=== PATIENT | female | born 1985 | race American Indian/Alaskan Native ===

== ENCOUNTER 2017-12-29 05:49 | Emergency (ER) | payer MEDICAID ==
[~2017-12-29] VITALS: Ht 162.6 cm; Wt 97.0 kg
[2017-12-29] MEDS ORDERED: IBUPROFEN 800MG TABLET PO ONE (06:45)
[2017-12-29 08:00] LABS: *AMPHETAMINES SCREEN URINE NEGATIVE (NEGATIVE); *BARBITURATES SCREEN URINE NEGATIVE (NEGATIVE); *BENZODIAZEPINES SCREEN URINE NEGATIVE (NEGATIVE); *COCAINE SCREEN URINE NEGATIVE (NEGATIVE); CANNABINOID URINE SCREEN NEGATIVE (NEGATIVE); METHADONE URINE SCREEN NEGATIVE (NEGATIVE); OPIATES URINE SCREEN NEGATIVE (NEGATIVE); PHENCYCLIDINE URINE SCREEN NEGATIVE (NEGATIVE)
[2017-12-29 14:50] VITALS: BP 128/78
== END 2017-12-29 15:21 | disposition home or self-care (01) ==
LOC: ER 05:49
DX: R07.89 Other chest pain (principal); F41.9 Anxiety disorder, unspecified
CPT/HCPCS: 36415; 71045; 80305; 81025; 93005; 99285; G0482

== ENCOUNTER 2018-02-04 11:47 | Emergency (ER) | payer MEDICAID ==
[~2018-02-04] VITALS: Ht 162.6 cm; Wt 82.0 kg
[2018-02-04] MEDS ORDERED: KETOROLAC 15MG/ML VIAL IM ONE (12:00)
[2018-02-04] MEDS ORDERED: ACETAMINOPHEN 325MG TABLET PO ONE (12:00)
[2018-02-04 12:50] LABS: BASOPHILS % 0.6 % (0.0-2.0); EOSINOPHILS % 0.4 % (0.0-5.0); HEMATOCRIT. 35.9 % (36.0-48.0); HEMOGLOBIN. 11.8 g/dL (12.0-16.0); LYMPHOCYTES % 18.8 % (20.0-50.0); MEAN CORPUSCULAR HEMOGLOBIN 26.7 pg (28.0-32.0); MEAN CORPUSCULAR VOLUME 81.6 fL (81.0-99.0); MEAN PLATELET VOLUME 9.2 fl (7.4-10.4); MONOCYTES % 7.2 % (2.0-8.0); PLATELET 313 x1000/uL (130-400); RED CELL DISTRIBUTION WIDTH 13.7 % (11.6-14.6)
[2018-02-04 13:10] LABS: CHLORIDE 104 mEq/L (98-107)
[2018-02-04 13:36] VITALS: BP 112/55
== END 2018-02-04 14:12 | disposition home or self-care (01) ==
LOC: ER 11:47
DX: R07.89 Other chest pain (principal); R05 Cough; R09.81 Nasal congestion; D64.9 Anemia, unspecified
CPT/HCPCS: 36415; 71045; 80053; 84484; 85025; 93005; 96372; 99284; J1885

== ENCOUNTER 2018-02-17 03:44 | Emergency (ER) | payer MEDICAID ==
[~2018-02-17] VITALS: Ht 167.6 cm; Wt 79.0 kg
[2018-02-17] MEDS ORDERED: KETOROLAC 60MG/2ML VIAL IM ONE (05:15)
[2018-02-17 06:16] VITALS: BP 105/64
[2018-02-17] MEDS ORDERED: LORAZEPAM 1MG TABLET PO ONE (07:00)
== END 2018-02-17 07:05 | disposition home or self-care (01) ==
LOC: ER 03:44
DX: R51 Headache (principal)
CPT/HCPCS: 81025; 96372; 99283; J1885

== ENCOUNTER 2018-04-14 17:49 | Emergency (ER) | payer MEDICAID, OTHER ==
[~2018-04-14] VITALS: Ht 162.6 cm; Wt 96.0 kg
[2018-04-14 17:51] VITALS: BP 132/81
== END 2018-04-14 19:50 | disposition left against medical advice (07) ==
LOC: ER 17:49
DX: R51 Headache (principal); Z53.21 Procedure and treatment not carried out due to patient leaving prior to being seen by health care provider

== ENCOUNTER 2018-04-15 12:24 | Emergency (ER) | payer MEDICAID, OTHER ==
[~2018-04-15] VITALS: Ht 160 cm; Wt 84.0 kg
[2018-04-15] MEDS ORDERED: ARIPIPRAZOLE 5MG TABLET PO ONE (15:30)
[2018-04-15 16:51] LABS: CLARITY URINE CLEAR (CLEAR); COLOR URINE YELLOW (YELLOW); KETONES URINE NEGATIVE (NEGATIVE); LEUKOCYTE ESTERASE URINE 2+ (NEGATIVE); NITRITE URINE NEGATIVE (NEGATIVE); OCCULT BLOOD URINE NEGATIVE (NEGATIVE); PH URINE 6.5 (4.5-8.0); PROTEIN URINE NEGATIVE (NEGATIVE); SPECIFIC GRAVITY URINE 1.003 (1.005-1.030); UROBILINOGEN URINE 0.2 E.U./dL (0.2-1.0)
[2018-04-15] MEDS: CEFTRIAXONE SODIUM 1 G/VIAL IM ONE ×2 (17:15→17:51)
[2018-04-15] MEDS ORDERED: CEFTRIAXONE 1 G PREMIX 50 ML IV ONE (17:15)
[2018-04-15] MEDS: LIDOCAINE HCL 1% 20ML VIAL (Pyxis) INJ INFIL ONE ×2 (17:51→17:56)
[2018-04-15 17:57] VITALS: BP 164/84
== END 2018-04-15 17:59 | disposition home or self-care (01) ==
LOC: ER 12:24
DX: F41.9 Anxiety disorder, unspecified (principal); N39.0 Urinary tract infection, site not specified; F32.9 Major depressive disorder, single episode, unspecified
CPT/HCPCS: 81003; 81025; 93005; 96372; 99284; J0696; J3490